=== PATIENT | female | born 1985 | race African-American/Black ===

== ENCOUNTER 2016-09-27 23:50 | Emergency (ER) | payer BC ==
[2016-09-27 23:44] LABS: INFLUENZA A SCREEN NEGATIVE (NEGATIVE); INFLUENZA B SCREEN NEGATIVE (NEGATIVE)
[2016-09-28 02:18] LABS: BASOPHILS 0.3 %; BASOPHILS ABSOLUTE 0.02 10/3/uL (0.0-0.16); EOSINOPHILS 1.1 %; EOSINOPHILS ABSOLUTE 0.07 10/3/uL (0.0-0.53); ER CBC TAT 0 Hrs 08 Mins; HEMATOCRIT 35.5 % (36.0-48.0); HEMOGLOBIN 12.7 g/dL (12.0-16.0); IMMATURE GRANULOCYTES 0.2 %; IMMATURE GRANULOCYTES ABSOLUTE 0.01 10/3/uL (0.0-0.11); LYMPHOCYTES 25.2 %; LYMPHOCYTES ABSOLUTE 1.68 10/3/uL (0.67-4.30); MANUAL DIFF NO %; MEAN CORPUS HGB CONC 35.8 g/dL (32.0-36.0); MEAN CORPUSCULAR HEMOGLOB 27.1 pg (26.0-34.0); MEAN CORPUSCULAR VOLUME 75.9 fL (80-100); MONOCYTES 11.9 %; MONOCYTES ABSOLUTE 0.79 10/3/uL (0.21-1.20); NEUTROPHILS 61.3 %; NEUTROPHILS ABSOLUTE 4.09 10/3/uL (2.02-8.40); PLATELET COUNT 235 10/3/uL (150-400); RED CELL COUNT 4.68 10/6/uL (4.0-5.6); WHITE BLOOD CELLS 6.7 10/3/uL (4.5-10.5)
[2016-09-28 02:31] LABS: BUN (BLOOD UREA NITROGEN) 9 MG/DL (6-23); CALCIUM, SERUM 8.5 MG/DL (8.5-10.4); CHLORIDE, SERUM 109 MMOL/L (96-112); CO2 (CARBON DIOXIDE) 26 MMOL/L (24-34); CREATININE 0.72 MG/DL (0.55-1.02); GFR AFRICAN AMERICAN 129 ML/MIN (>=60); GFR NON AFRICAN AMERICAN 112 ML/MIN (>=60); GLUCOSE, SERUM 96 MG/DL (60-99); POTASSIUM, SERUM 3.2 MMOL/L (3.5-5.3); SODIUM, SERUM 143 MMOL/L (135-148)
[2016-09-28 02:44] LABS: ASCORBIC ACID (UR NOT ORDER) NEG (NEG); BILIRUBIN, URINE NEGATIVE (NEG); ER URINALYSIS TAT 0 Hrs 00 Mins; KETONE, URINE NEGATIVE (NEG); LEUKOCYTE ESTERASE(NOT OR NEG (NEG); NITRITE (URINE) NEG (NEG); WBC (NOT ORDERED) (RFLEX) 0 (0-5)
== END 2016-09-28 03:07 | disposition home or self-care (01) ==
LOC: ER 23:50
PROVIDERS: Emergency Medicine; Nurse Practitioner Acute Care
DX: J11.1 Influenza due to unidentified influenza virus with other respiratory manifestations (principal); F17.210 Nicotine dependence, cigarettes, uncomplicated
CPT/HCPCS: 71020; 80048; 81001; 85025; 87804; 99283; A9270-GY

== ENCOUNTER 2016-12-22 15:42 | Emergency (ER) | payer OTHER, BC | END 2016-12-22 18:18 | disposition home or self-care (01) | LOC: ER 15:42 | DX: S16.1XXA Strain of muscle, fascia and tendon at neck level, initial encounter (principal); S46.911A Strain of unspecified muscle, fascia and tendon at shoulder and upper arm level, right arm, initial encounter; S66.911A Strain of unspecified muscle, fascia and tendon at wrist and hand level, right hand, initial encounter; F17.200 Nicotine dependence, unspecified, uncomplicated; V49.40XA Driver injured in collision with unspecified motor vehicles in traffic accident, initial encounter | CPT/HCPCS: 72040; 73030-RT; 73110-RT; 99283; J1885 ==